=== PATIENT | male | born 1945 | race Caucasian/White ===

== ENCOUNTER 2021-07-01 10:30 | Emergency (ER) | payer OTHER, SELFPAY ==
--- NOTE | 2021-07-01 10:40 | ED.URI ---
HPI - URI/Sore Throat General Chief Complaint: Shortness of Breath/Dyspnea Stated Complaint: uri Time Seen by Provider: 07/01/21 10:41 Source: patient, family, RN notes reviewed and old records reviewed Mode of arrival: ambulatory Limitations: no limitations History of Present Illness HPI Narrative: 75-year-old male presents to the [facility] with increasing shortness of breath over the last 2 to 3 days. Has a history of lung disease, prostate cancer and congestive heart failure. Patient states that he is unable to lay flat. Is unable to walk more than 20 feet without getting short of breath. States that he can sit for 20 minutes and is able to breathe again without issue. Patient came to the [facility] not wanting to go to the ER, states every time I go to the ER they admit me. Reports gaining 1 pound every day for the last 3 days. He does weigh himself daily. On he had his pneumonia vaccine, booster shot for COVID. Denies fevers. Denies chest pain or abdominal pain. Related Data Home Medications Medication Instructions Recorded Confirmed atorvastatin 20 mg PO DAILY 07/01/21 07/01/21 blood sugar diagnostic [Contour 07/01/21 07/01/21 Next Test Strips] fenofibrate micronized 134 mg PO DIRECTED 07/01/21 07/01/21 furosemide 20 mg PO DIRECTED 07/01/21 07/01/21 glipizide 5 mg PO DAILY 07/01/21 07/01/21 isosorbide mononitrate 60 mg PO DAILY 07/01/21 07/01/21 losartan 50 mg PO DAILY 07/01/21 07/01/21 metformin 500 mg PO BID 07/01/21 07/01/21 montelukast 10 mg PO DAILY 07/01/21 07/01/21 nitroglycerin mg 07/01/21 pantoprazole PO 07/01/21 sotalol 07/01/21 warfarin 07/01/21 Allergies Allergy/AdvReac Type Severity Reaction Status Date / Time No Known Allergies Allergy Verified 07/01/21 11:21 Review of Systems Review of Systems: All systems reviewed & are unremarkable except as noted in HPI and below Constitutional: Constitutional: Reports no additional constitutional complaints, Denies chills, Denies fever(s) and Denies headache(s) Eyes: Eyes: Reports no additional eye complaints ENT: Reports as per HPI, Denies vertigo, Denies dizziness, Denies headache(s), Denies nasal congestion and Denies sore throat Cardiovascular: Cardiovascular: Reports no additional cardiovascular complaints, Denies chest pain, Denies syncope, Denies rapid heart rate and Reports dyspnea Respiratory: Respiratory: Reports as per HPI, Reports chest congestion, Denies cough, Reports dyspnea and Denies wheezing Gastrointestinal: Gastrointestinal: Reports no additional gastrointestinal complaints, Denies abdominal pain, Denies diarrhea, Denies nausea and Denies vomiting Musculoskeletal: Musculoskeletal: Reports no additional musculoskeletal complaints, Denies back pain and Denies numbness Integumentary/Breasts: Skin/Breast: Reports system reviewed and no additional complaints, except as docu Neurologic: Reports system reviewed and no additional complaints, except as documented, Denies vertigo, Denies dizziness, Denies syncope, Denies headache(s), Denies focal weakness and Denies numbness Psychiatric: Psychiatric: Reports no additional psychiatric complaints Allergic/Immunologic: Allergic/Immunologic: Reports no additional allergic/immunologic complaints [facility] Past Medical History Medical History (Updated 07/01/21 @ 17:56 by Natalya Adam APRN) Congestive heart failure Lung disease 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 There is no relevant family history pertinent to the patient complaint. Exam Const: General: cooperative, no acute distress, well developed, alert and ill appeari
[2021-07-01 10:43] VITALS: BP 135/80; PULSE 75; RESP 20; TEMP 37; O2SAT 94
== END 2021-07-01 11:00 | disposition short-term general hospital (02) ==
PROVIDERS: Emergency Provider Nurse Practitioner; PCP Internal Medicine
DX: R06.09 Other forms of dyspnea (principal); R06.02 Shortness of breath; I50.9 Heart failure, unspecified; Z85.46 Personal history of malignant neoplasm of prostate
CPT/HCPCS: 99202; G0463